=== PATIENT | female | born 1970 | race Caucasian/White ===

== ENCOUNTER 2017-12-24 15:41 | Outpatient (CLI) | payer OTHER | END 2017-12-24 16:42 | disposition home or self-care (01) | LOC: DCC 15:41 | DX: J18.9 Pneumonia, unspecified organism (principal); M54.9 Dorsalgia, unspecified; E66.9 Obesity, unspecified; R73.9 Hyperglycemia, unspecified | CPT/HCPCS: 82962 ==

== ENCOUNTER 2018-02-18 04:58 | Inpatient (IN) | payer OTHER ==
[2018-02-18] MEDS ORDERED: HEPARIN 5,000 UNIT/0.5 ML VIAL SC (06:00)
[2018-02-18] MEDS ORDERED: ONDANSETRON 4 MG INJ IV (06:00)
[2018-02-18] MEDS ORDERED: GLUCOSE GEL 15 GRAM TUBE BUCCAL (06:30)
[2018-02-18] MEDS ORDERED: DEXTROSE 50% 50 ML SYRINGE IV ×2 (06:30)
[2018-02-18] MEDS ORDERED: GLUCOSE GEL 15 GRAM TUBE PO ×2 (06:30)
[2018-02-18] MEDS ORDERED: GLUCAGON 1 MG INJ IM (06:30)
[2018-02-18] MEDS: HYDROCODONE/APAP (5/325) TAB PO ×3 (06:33→16:55)
[2018-02-18] MEDS: METHYLPREDNISOLONE 125 MG INJ IV (06:34)
[2018-02-18 06:53] LABS: ADD MAN DIFF? NO
[2018-02-18 06:55] LABS: WHITE BLOOD COUNT 10.6 10^3/ul (4.8-10.8)
[2018-02-18 06:55] LABS: BASOPHIL # 0.1 10^3/ul (0.0-0.1); BASOPHILS % 0.6 % (0.0-2.0); EOSINOPHILS # 0.1 10^3/ul (0.0-0.5); EOSINOPHILS % 1.1 % (0.0-7.0); HEMATOCRIT 38.4 % (37.0-47.0); HEMOGLOBIN 13.1 g/dl (12.0-16.0); LYMPHOCYTES # 2.4 10^3/ul (0.8-2.9); LYMPHOCYTES % 22.9 % (15.0-51.0); MEAN CORPUSCULAR HEMOGLOBIN 30.5 pg (29.0-33.0); MEAN CORPUSCULAR HGB CONC 34.1 g/dl (32.0-37.0); MEAN CORPUSCULAR VOLUME 89.3 fl (82.0-101.0); MEAN PLATELET VOLUME 9.5 fl (7.4-10.4); MONOCYTE # 0.5 10^3/ul (0.3-0.9); MONOCYTES % 5.1 % (0.0-11.0); NEUTROPHIL # 7.4 10^3/ul (1.6-7.5); PLATELET COUNT 344 10^3/UL (140-415); RED CELL DISTRIBUTION WIDTH 12.5 % (11.5-14.5)
[2018-02-18 07:08] LABS: HEMOGLOBIN A1C 9.6 % (0-5.9)
[2018-02-18 07:14] LABS: ALANINE AMINOTRANSFERASE 14 IU/L (13-69); ALBUMIN 3.8 g/dl (3.3-4.9); ALBUMIN/GLOBULIN RATIO 1.02; ALKALINE PHOSPHATASE 54 IU/L (42-121); ANION GAP 11 (8-16); ASPARTATE AMINO TRANSFERASE 16 IU/L (15-46); BILIRUBIN,INDIRECT 0.5 mg/dl (0-1.1); BILIRUBIN,TOTAL 0.5 mg/dl (0.2-1.3); BLOOD UREA NITROGEN 11 mg/dl (7-20); CARBON DIOXIDE 27 mmol/L (21-31); CHLORIDE 103 mmol/L (97-110); CREATININE 0.51 mg/dl (0.44-1.00); GLUCOSE 249 mg/dl (70-220); MAGNESIUM 1.8 mg/dl (1.7-2.5); PHOSPHORUS 3.9 mg/dl (2.5-4.9); POTASSIUM 4.4 mmol/L (3.5-5.1); SODIUM 137 mmol/L (135-144); TOTAL PROTEIN 7.5 g/dl (6.1-8.1)
[2018-02-18] MEDS: ACCU-CHEK XX ×4 (07:20→21:08)
[2018-02-18] MEDS: INSULIN ASPART [NOVOLOG] 3 ML PEN SC ×6 (08:47→21:08)
[2018-02-18] MEDS: HEPARIN 5,000 UNIT/0.5 ML VIAL SC ×2 (09:11→21:08)
[2018-02-18] MEDS: INSULIN GLARGINE [LANTus] (100 UNITS/ML) SYG SC (09:55)
[2018-02-18 10:13] LABS: HAAIG REFLEX REFLEX FILED
[2018-02-18 11:05] LABS: C-REACTIVE PROTEIN 2.6 mg/dl (0.0-0.9)
[2018-02-18 11:37] LABS: HEPATITIS B SURFACE ANTIGEN NEGATIVE (NEGATIVE)
[2018-02-18] MEDS: metFORMIN 500 MG TAB PO ×2 (11:46→17:38)
[2018-02-18 11:55] LABS: HEPATITIS B CORE ANTIBODY NEGATIVE (NEGATIVE); HEPATITIS C VIRAL ANTIBODY NEGATIVE (NEGATIVE)
[2018-02-18] MEDS ORDERED: DEXAMETHASONE 4 MG/ML 1 ML INJ IV (12:00)
[2018-02-18] MEDS: LIDOCAINE 2% JELLY 5 ML TOP (12:30)
[2018-02-18 15:07] LABS: RHEUMATOID FACTOR NEGATIVE (NEGATIVE)
[2018-02-18] MEDS: DIPHENHYDRAMINE 25 MG CAP PO (17:04)
[2018-02-19] MEDS: DIPHENHYDRAMINE 25 MG CAP PO ×3 (00:27→14:36)
[2018-02-19] MEDS: HYDROCODONE/APAP (5/325) TAB PO ×4 (00:28→19:49)
[2018-02-19] MEDS: ACCU-CHEK XX ×5 (02:31→21:36)
[2018-02-19 08:03] LABS: ADD MAN DIFF? NO
[2018-02-19 08:05] LABS: WHITE BLOOD COUNT 10.1 10^3/ul (4.8-10.8)
[2018-02-19 08:05] LABS: BASOPHILS % 0.3 % (0.0-2.0); EOSINOPHILS % 0.3 % (0.0-7.0); HEMATOCRIT 37.8 % (37.0-47.0); HEMOGLOBIN 12.7 g/dl (12.0-16.0); LYMPHOCYTES # 3.3 10^3/ul (0.8-2.9); LYMPHOCYTES % 32.4 % (15.0-51.0); MEAN CORPUSCULAR HEMOGLOBIN 30.3 pg (29.0-33.0); MEAN CORPUSCULAR HGB CONC 33.6 g/dl (32.0-37.0); MEAN CORPUSCULAR VOLUME 90.2 fl (82.0-101.0); MEAN PLATELET VOLUME 9.6 fl (7.4-10.4); MONOCYTE # 0.6 10^3/ul (0.3-0.9); NEUTROPHIL # 6.1 10^3/ul (1.6-7.5); NEUTROPHILS % 60.6 % (39.0-77.0); PLATELET COUNT 359 10^3/UL (140-415); RED BLOOD COUNT 4.19 10^6/ul (4.20-5.40); RED CELL DISTRIBUTION WIDTH 12.5 % (11.5-14.5)
[2018-02-19] MEDS: metFORMIN 500 MG TAB PO ×2 (08:06→12:22)
[2018-02-19] MEDS: INSULIN GLARGINE [LANTus] (100 UNITS/ML) SYG SC (08:18)
[2018-02-19] MEDS: INSULIN ASPART [NOVOLOG] 3 ML PEN SC ×7 (08:18→21:36)
[2018-02-19] MEDS: HEPARIN 5,000 UNIT/0.5 ML VIAL SC ×2 (08:18→21:36)
[2018-02-19 08:25] LABS: ALANINE AMINOTRANSFERASE 19 IU/L (13-69); ALBUMIN 3.9 g/dl (3.3-4.9); ALBUMIN/GLOBULIN RATIO 1.11; ALKALINE PHOSPHATASE 51 IU/L (42-121); ANION GAP 13 (8-16); ASPARTATE AMINO TRANSFERASE 13 IU/L (15-46); BILIRUBIN,INDIRECT 0.6 mg/dl (0-1.1); BILIRUBIN,TOTAL 0.6 mg/dl (0.2-1.3); BLOOD UREA NITROGEN 15 mg/dl (7-20); CALCIUM 9.5 mg/dl (8.4-10.2); CARBON DIOXIDE 27 mmol/L (21-31); CHLORIDE 101 mmol/L (97-110); CREATININE 0.59 mg/dl (0.44-1.00); GLUCOSE 177 mg/dl (70-220); POTASSIUM 4.4 mmol/L (3.5-5.1); SODIUM 137 mmol/L (135-144); TOTAL PROTEIN 7.4 g/dl (6.1-8.1)
[2018-02-19 09:06] LABS: HIV 1&2 ANTIBODY NEGATIVE (NEGATIVE)
[2018-02-19] MEDS: predniSONE 20 MG TAB PO (13:38)
[2018-02-19] MEDS: LINAGLIPTIN 5 MG TABLET PO (14:36)
[2018-02-20] MEDS: KETOROLAC 15 MG INJ IV (00:35)
[2018-02-20] MEDS: DIPHENHYDRAMINE 25 MG CAP PO ×4 (00:43→20:18)
[2018-02-20] MEDS: ACCU-CHEK XX ×5 (01:57→20:30)
[2018-02-20] MEDS: INSULIN ASPART [NOVOLOG] 3 ML PEN SC ×7 (07:47→20:30)
[2018-02-20] MEDS: INSULIN GLARGINE [LANTus] (100 UNITS/ML) SYG SC (07:47)
[2018-02-20] MEDS: LINAGLIPTIN 5 MG TABLET PO (07:59)
[2018-02-20] MEDS: HYDROCODONE/APAP (5/325) TAB PO ×3 (07:59→20:21)
[2018-02-20] MEDS: predniSONE 20 MG TAB PO (07:59)
[2018-02-20] MEDS: HEPARIN 5,000 UNIT/0.5 ML VIAL SC ×2 (08:03→20:30)
[2018-02-20 08:10] LABS: ADD MAN DIFF? NO
[2018-02-20 08:14] LABS: WHITE BLOOD COUNT 9.3 10^3/ul (4.8-10.8)
[2018-02-20 08:14] LABS: BASOPHIL # 0.1 10^3/ul (0.0-0.1); BASOPHILS % 0.5 % (0.0-2.0); EOSINOPHILS # 0.1 10^3/ul (0.0-0.5); HEMATOCRIT 39.3 % (37.0-47.0); HEMOGLOBIN 12.9 g/dl (12.0-16.0); LYMPHOCYTES # 3.9 10^3/ul (0.8-2.9); LYMPHOCYTES % 42.4 % (15.0-51.0); MEAN CORPUSCULAR HEMOGLOBIN 29.7 pg (29.0-33.0); MEAN CORPUSCULAR HGB CONC 32.8 g/dl (32.0-37.0); MEAN CORPUSCULAR VOLUME 90.6 fl (82.0-101.0); MEAN PLATELET VOLUME 9.4 fl (7.4-10.4); MONOCYTE # 0.5 10^3/ul (0.3-0.9); MONOCYTES % 5.7 % (0.0-11.0); NEUTROPHIL # 4.6 10^3/ul (1.6-7.5); PLATELET COUNT 343 10^3/UL (140-415); RED BLOOD COUNT 4.34 10^6/ul (4.20-5.40); RED CELL DISTRIBUTION WIDTH 12.6 % (11.5-14.5)
[2018-02-20 08:33] LABS: ALANINE AMINOTRANSFERASE 26 IU/L (13-69); ALBUMIN 3.9 g/dl (3.3-4.9); ALBUMIN/GLOBULIN RATIO 1.08; ALKALINE PHOSPHATASE 50 IU/L (42-121); ANION GAP 11 (8-16); ASPARTATE AMINO TRANSFERASE 18 IU/L (15-46); BILIRUBIN,INDIRECT 0.4 mg/dl (0-1.1); BILIRUBIN,TOTAL 0.4 mg/dl (0.2-1.3); BLOOD UREA NITROGEN 18 mg/dl (7-20); CALCIUM 9.1 mg/dl (8.4-10.2); CARBON DIOXIDE 32 mmol/L (21-31); CHLORIDE 99 mmol/L (97-110); CREATININE 0.64 mg/dl (0.44-1.00); GLUCOSE 128 mg/dl (70-220); POTASSIUM 4.4 mmol/L (3.5-5.1); SODIUM 138 mmol/L (135-144); TOTAL PROTEIN 7.5 g/dl (6.1-8.1)
[2018-02-21] MEDS: ACCU-CHEK XX ×5 (02:12→21:00)
[2018-02-21] MEDS: DIPHENHYDRAMINE 25 MG CAP PO ×4 (02:14→21:03)
[2018-02-21] MEDS: HYDROCODONE/APAP (5/325) TAB PO ×4 (02:16→21:01)
[2018-02-21] MEDS: LINAGLIPTIN 5 MG TABLET PO (08:20)
[2018-02-21] MEDS: predniSONE 20 MG TAB PO (08:20)
[2018-02-21] MEDS: HEPARIN 5,000 UNIT/0.5 ML VIAL SC ×2 (08:25→22:31)
[2018-02-21] MEDS: INSULIN ASPART [NOVOLOG] 3 ML PEN SC ×7 (08:25→21:00)
[2018-02-21] MEDS: INSULIN GLARGINE [LANTus] (100 UNITS/ML) SYG SC (08:26)
[2018-02-21 10:02] LABS: ADD MAN DIFF? NO
[2018-02-21 10:04] LABS: BASOPHIL # 0.1 10^3/ul (0.0-0.1); BASOPHILS % 0.6 % (0.0-2.0); EOSINOPHILS # 0.1 10^3/ul (0.0-0.5); EOSINOPHILS % 1.5 % (0.0-7.0); HEMATOCRIT 40.9 % (37.0-47.0); HEMOGLOBIN 13.7 g/dl (12.0-16.0); LYMPHOCYTES # 3.9 10^3/ul (0.8-2.9); LYMPHOCYTES % 45.6 % (15.0-51.0); MEAN CORPUSCULAR HEMOGLOBIN 30.6 pg (29.0-33.0); MEAN CORPUSCULAR HGB CONC 33.5 g/dl (32.0-37.0); MEAN CORPUSCULAR VOLUME 91.5 fl (82.0-101.0); MEAN PLATELET VOLUME 9.5 fl (7.4-10.4); MONOCYTE # 0.5 10^3/ul (0.3-0.9); MONOCYTES % 5.6 % (0.0-11.0); NEUTROPHIL # 3.9 10^3/ul (1.6-7.5); NEUTROPHILS % 46.2 % (39.0-77.0); PLATELET COUNT 358 10^3/UL (140-415); RED BLOOD COUNT 4.47 10^6/ul (4.20-5.40); RED CELL DISTRIBUTION WIDTH 12.5 % (11.5-14.5)
[2018-02-21 10:04] LABS: WHITE BLOOD COUNT 8.4 10^3/ul (4.8-10.8)
[2018-02-21 10:30] LABS: ANION GAP 12 (8-16); BLOOD UREA NITROGEN 18 mg/dl (7-20); CALCIUM 9.1 mg/dl (8.4-10.2); CARBON DIOXIDE 28 mmol/L (21-31); CHLORIDE 99 mmol/L (97-110); CREATININE 0.73 mg/dl (0.44-1.00); GLUCOSE 276 mg/dl (70-220); MAGNESIUM 1.7 mg/dl (1.7-2.5); PHOSPHORUS 4.7 mg/dl (2.5-4.9); SODIUM 135 mmol/L (135-144)
[2018-02-22] MEDS: HYDROCODONE/APAP (5/325) TAB PO ×4 (01:11→17:32)
[2018-02-22] MEDS: ACCU-CHEK XX ×5 (01:57→21:00)
[2018-02-22] MEDS ORDERED: morphine 4 MG/ML VIAL IV (02:00)
[2018-02-22] MEDS: morphine (ER) 30 MG TAB PO ×3 (02:10→20:48)
[2018-02-22] MEDS: DIPHENHYDRAMINE 25 MG CAP PO ×3 (02:57→20:48)
[2018-02-22 05:11] LABS: ADD MAN DIFF? NO
[2018-02-22 05:13] LABS: BASOPHIL # 0.1 10^3/ul (0.0-0.1); BASOPHILS % 0.5 % (0.0-2.0); EOSINOPHILS # 0.1 10^3/ul (0.0-0.5); EOSINOPHILS % 1.2 % (0.0-7.0); HEMATOCRIT 39.1 % (37.0-47.0); LYMPHOCYTES # 4.5 10^3/ul (0.8-2.9); LYMPHOCYTES % 40.2 % (15.0-51.0); MEAN CORPUSCULAR HGB CONC 33.2 g/dl (32.0-37.0); MEAN CORPUSCULAR VOLUME 90.3 fl (82.0-101.0); MEAN PLATELET VOLUME 9.6 fl (7.4-10.4); MONOCYTE # 0.6 10^3/ul (0.3-0.9); MONOCYTES % 5.6 % (0.0-11.0); NEUTROPHIL # 5.8 10^3/ul (1.6-7.5); NEUTROPHILS % 52.1 % (39.0-77.0); PLATELET COUNT 369 10^3/UL (140-415); RED BLOOD COUNT 4.33 10^6/ul (4.20-5.40); RED CELL DISTRIBUTION WIDTH 12.5 % (11.5-14.5)
[2018-02-22 05:13] LABS: WHITE BLOOD COUNT 11.2 10^3/ul (4.8-10.8)
[2018-02-22 06:15] LABS: ANION GAP 12 (8-16); BLOOD UREA NITROGEN 19 mg/dl (7-20); CARBON DIOXIDE 28 mmol/L (21-31); CHLORIDE 100 mmol/L (97-110); CREATININE 0.64 mg/dl (0.44-1.00); GLUCOSE 188 mg/dl (70-220); MAGNESIUM 1.9 mg/dl (1.7-2.5); PHOSPHORUS 4.8 mg/dl (2.5-4.9); POTASSIUM 4.4 mmol/L (3.5-5.1); SODIUM 136 mmol/L (135-144)
[2018-02-22] MEDS: INSULIN GLARGINE [LANTus] (100 UNITS/ML) SYG SC (08:50)
[2018-02-22] MEDS: INSULIN ASPART [NOVOLOG] 3 ML PEN SC ×7 (08:50→21:00)
[2018-02-22] MEDS: predniSONE 10 MG TAB PO (08:54)
[2018-02-22] MEDS: LINAGLIPTIN 5 MG TABLET PO (08:54)
[2018-02-22] MEDS: HEPARIN 5,000 UNIT/0.5 ML VIAL SC ×2 (09:05→22:12)
[2018-02-23] MEDS: HYDROCODONE/APAP (5/325) TAB PO ×4 (00:46→20:04)
[2018-02-23] MEDS: ACCU-CHEK XX ×5 (01:44→21:46)
[2018-02-23] MEDS: DIPHENHYDRAMINE 25 MG CAP PO ×4 (02:57→21:52)
[2018-02-23] MEDS: LINAGLIPTIN 5 MG TABLET PO (08:29)
[2018-02-23] MEDS: predniSONE 10 MG TAB PO (08:29)
[2018-02-23] MEDS: morphine (ER) 30 MG TAB PO ×2 (08:29→21:52)
[2018-02-23] MEDS: INSULIN ASPART [NOVOLOG] 3 ML PEN SC ×7 (08:32→21:00)
[2018-02-23] MEDS: INSULIN GLARGINE [LANTus] (100 UNITS/ML) SYG SC (08:33)
[2018-02-23] MEDS: HEPARIN 5,000 UNIT/0.5 ML VIAL SC ×2 (08:34→21:54)
[2018-02-24] MEDS: HYDROCODONE/APAP (5/325) TAB PO ×6 (00:07→22:30)
[2018-02-24] MEDS: ACCU-CHEK XX ×5 (01:22→21:14)
[2018-02-24] MEDS: DIPHENHYDRAMINE 25 MG CAP PO ×4 (05:00→22:30)
[2018-02-24] MEDS: INSULIN ASPART [NOVOLOG] 3 ML PEN SC ×7 (07:50→20:18)
[2018-02-24] MEDS: LINAGLIPTIN 5 MG TABLET PO (08:39)
[2018-02-24] MEDS: predniSONE 10 MG TAB PO (08:40)
[2018-02-24] MEDS: morphine (ER) 30 MG TAB PO ×2 (08:44→20:13)
[2018-02-24] MEDS: INSULIN GLARGINE [LANTus] (100 UNITS/ML) SYG SC (08:45)
[2018-02-24] MEDS: HEPARIN 5,000 UNIT/0.5 ML VIAL SC ×2 (08:46→20:20)
[2018-02-24] MEDS: DIPHENHYDRAMINE 50 MG INJ IV (23:30)
[2018-02-25] MEDS: morphine 2 MG INJ IV (00:26)
[2018-02-25] MEDS: ACCU-CHEK XX ×3 (02:23→11:10)
[2018-02-25] MEDS: HYDROCODONE/APAP (5/325) TAB PO ×3 (02:23→12:03)
[2018-02-25] MEDS: DIPHENHYDRAMINE 50 MG CAP PO ×3 (06:07→12:03)
[2018-02-25] MEDS: INSULIN ASPART [NOVOLOG] 3 ML PEN SC ×4 (07:50→13:08)
[2018-02-25] MEDS: LINAGLIPTIN 5 MG TABLET PO (08:41)
[2018-02-25] MEDS: predniSONE 10 MG TAB PO (08:41)
[2018-02-25] MEDS: HEPARIN 5,000 UNIT/0.5 ML VIAL SC (08:44)
[2018-02-25] MEDS: INSULIN GLARGINE [LANTus] (100 UNITS/ML) SYG SC (08:45)
[2018-02-25] MEDS: morphine (ER) 30 MG TAB PO (08:52)
[2018-02-25 12:12] LABS: ADD MAN DIFF? NO
[2018-02-25 12:15] LABS: WHITE BLOOD COUNT 11.6 10^3/ul (4.8-10.8)
[2018-02-25 12:15] LABS: BASOPHIL # 0.1 10^3/ul (0.0-0.1); BASOPHILS % 0.4 % (0.0-2.0); EOSINOPHILS % 0.3 % (0.0-7.0); HEMATOCRIT 39.3 % (37.0-47.0); HEMOGLOBIN 13.2 g/dl (12.0-16.0); LYMPHOCYTES # 1.5 10^3/ul (0.8-2.9); MEAN CORPUSCULAR HGB CONC 33.6 g/dl (32.0-37.0); MEAN CORPUSCULAR VOLUME 92.3 fl (82.0-101.0); MEAN PLATELET VOLUME 9.6 fl (7.4-10.4); MONOCYTE # 0.4 10^3/ul (0.3-0.9); NEUTROPHIL # 9.6 10^3/ul (1.6-7.5); NEUTROPHILS % 82.9 % (39.0-77.0); PLATELET COUNT 395 10^3/UL (140-415); RED BLOOD COUNT 4.26 10^6/ul (4.20-5.40); RED CELL DISTRIBUTION WIDTH 12.7 % (11.5-14.5)
[2018-02-25 12:24] LABS: ADD UMIC YES; UR ASCORBIC ACID NEGATIVE (NEGATIVE); UR BACTERIA FEW /HPF (NONE SEEN); UR BILIRUBIN (Dip) NEGATIVE (NEGATIVE); UR BLOOD (Dip) NEGATIVE (NEGATIVE); UR CLARITY SLIGHTLY CLOUDY (CLEAR); UR COLOR YELLOW (YELLOW); UR GLUCOSE (Dip) 1+ mg/dL (NEGATIVE); UR KETONES (Dip) NEGATIVE (NEGATIVE); UR LEUKOCYTE ESTERASE (Dip) 2+ Leu/ul (NEGATIVE); UR NITRITE (Dip) NEGATIVE (NEGATIVE); UR RBC 2 /HPF (0-5); UR SPECIFIC GRAVITY (Dip) 1.017 (1.003-1.030); UR SQUAMOUS EPITHELIAL CELL MODERATE /HPF (FEW); UR TOTAL PROTEIN (Dip) NEGATIVE (NEGATIVE); UR UROBILINOGEN (Dip) NEGATIVE (NEGATIVE); UR WBC 6 /HPF (0-5)
[2018-02-25 12:36] LABS: INR 0.96; PROTIME 12.9 Sec (11.9-14.9)
[2018-02-25 12:38] LABS: ALANINE AMINOTRANSFERASE 86 IU/L (13-69); ALBUMIN 3.9 g/dl (3.3-4.9); ALBUMIN/GLOBULIN RATIO 1.05; ALKALINE PHOSPHATASE 61 IU/L (42-121); ANION GAP 13 (8-16); ASPARTATE AMINO TRANSFERASE 33 IU/L (15-46); BILIRUBIN,INDIRECT 0.5 mg/dl (0-1.1); BILIRUBIN,TOTAL 0.5 mg/dl (0.2-1.3); BLOOD UREA NITROGEN 17 mg/dl (7-20); CALCIUM 8.9 mg/dl (8.4-10.2); CARBON DIOXIDE 29 mmol/L (21-31); CHLORIDE 98 mmol/L (97-110); CREATININE 0.76 mg/dl (0.44-1.00); GLUCOSE 221 mg/dl (70-220); POTASSIUM 4.2 mmol/L (3.5-5.1); SODIUM 136 mmol/L (135-144); TOTAL PROTEIN 7.6 g/dl (6.1-8.1)
[2018-02-25 12:44] LABS: C-REACTIVE PROTEIN HIGH SENSI > 1.50 mg/dl (0.00-0.74)
[2018-03-06 14:04] LABS: ANA SCREEN NEGATIVE (NEGATIVE); ANCA SCREEN NEGATIVE (NEGATIVE); MYELOPEROXIDASE ANTIBODY <1.0 AI; PROTEINASE-3 ANTIBODY <1.0 AI
== END 2018-02-25 16:10 | disposition left against medical advice (07) | DRG 607 ==
LOC: MS1 04:58 → MS4 10:01
PROC: 0HBKXZX Excision of Right Lower Leg Skin, External Approach, Diagnostic (ICD-10-PCS; principal; 2018-02-18)
DX: L95.9 Vasculitis limited to the skin, unspecified (principal); Z68.42 Body mass index [BMI] 45.0-49.9, adult; E11.65 Type 2 diabetes mellitus with hyperglycemia; E66.01 Morbid (severe) obesity due to excess calories; E78.5 Hyperlipidemia, unspecified; I77.6 Arteritis, unspecified
CPT/HCPCS: 80048; 80053; 81001; 82595; 82962; 83036; 83735; 84100; 84443; 85025; 85610; 85651; 85730; 86021; 86038; 86140; 86430; 86703; 86704; 86709; 86803; 87340; 88305